=== PATIENT | female | born 1980 | race African-American/Black ===

== ENCOUNTER 2024-06-10 12:04 | Emergency (ER) | payer OTHER ==
[~2024-06-10] VITALS: Ht 167.6 cm; Wt 70.0 kg
[2024-06-10 12:08] VITALS: BP 160/100; PULSE 102; RESP 16; TEMP 98.4; O2SAT 100
== END 2024-06-10 14:07 | disposition left against medical advice (07) ==
LOC: ER 12:04
DX: M25.532 Pain in left wrist (principal); Z53.21 Procedure and treatment not carried out due to patient leaving prior to being seen by health care provider